=== PATIENT | female | born 1970 | race Caucasian/White ===

== ENCOUNTER → 2020-08-17 11:35 | Outpatient (BNVA) | payer MEDICARE, SELFPAY | PROVIDERS: Family Provider Family Medicine; PCP Family Medicine; Visit Provider Nurse Practitioner Family | DX: S63.91XA Sprain of unspecified part of right wrist and hand, initial encounter (principal); X58.XXXA Exposure to other specified factors, initial encounter | CPT/HCPCS: 73130 ==

== ENCOUNTER 2020-09-07 09:52 | Outpatient (CLI) | payer MEDICARE, SELFPAY ==
--- NOTE | 2020-09-07 10:23 | XR_ITS ---
WS: [id number] XR cervical spine fl/ex [id number] REASON FOR EXAM: M79.601 - Pain in right arm FINDINGS: The neutral, flexion, and extension views of the cervical spine in the lateral projection demonstrate significant narrowing of the intervertebral disc space at C5-C6. There is slight anterolisthesis of C6 in relation to C5. There is no significant change in the vertebral body alignment with flexion or extension. XR/XR cervical spine fl/ex [id number] IMPRESSION: Degenerative spondylosis at C5-C6 as above. No significant movement with flexio n and extension.
== END 2020-09-07 09:53 | disposition home or self-care (01) ==
LOC: RAD 10:04
PROVIDERS: PCP Family Medicine; Visit Provider Nurse Practitioner Family
DX: M79.601 Pain in right arm (principal); R20.0 Anesthesia of skin; M47.812 Spondylosis without myelopathy or radiculopathy, cervical region
CPT/HCPCS: 72040

== ENCOUNTER → 2020-09-20 13:58 | Outpatient (BNVA) | payer MEDICARE, SELFPAY | PROVIDERS: PCP Family Medicine; Visit Provider Family Medicine | DX: G56.01 Carpal tunnel syndrome, right upper limb (principal); R20.0 Anesthesia of skin; M79.601 Pain in right arm; M19.039 Primary osteoarthritis, unspecified wrist; S63.501A Unspecified sprain of right wrist, initial encounter; S69.90XA Unspecified injury of unspecified wrist, hand and finger(s), initial encounter; M65.4 Radial styloid tenosynovitis [de Quervain] | CPT/HCPCS: 73110; 73130 ==

== ENCOUNTER 2020-09-21 16:12 | Outpatient (CLI) | payer MEDICARE, SELFPAY | END 2020-09-21 16:13 | disposition home or self-care (01) | LOC: SPT 16:12 | PROVIDERS: PCP Family Medicine; Visit Provider Orthopaedic Surgery | DX: Z46.89 Encounter for fitting and adjustment of other specified devices (principal); M25.531 Pain in right wrist | CPT/HCPCS: 97760; L3809 ==

== ENCOUNTER → 2020-11-02 10:37 | Outpatient (BNVA) | payer MEDICARE, SELFPAY | PROVIDERS: PCP Family Medicine; Visit Provider Nurse Practitioner Family | DX: S69.91XA Unspecified injury of right wrist, hand and finger(s), initial encounter; M25.512 Pain in left shoulder; X58.XXXA Exposure to other specified factors, initial encounter | CPT/HCPCS: 73030; 73130 ==

== ENCOUNTER → 2020-11-07 12:42 | Outpatient (BNVA) | payer BC, SELFPAY | PROVIDERS: PCP Family Medicine; Visit Provider Specialist | DX: R20.0 Anesthesia of skin (principal); R20.2 Paresthesia of skin; G56.11 Other lesions of median nerve, right upper limb | CPT/HCPCS: 95908 ==

== ENCOUNTER → 2020-11-14 11:47 | Outpatient (BNVA) | payer MEDICARE, SELFPAY | PROVIDERS: PCP Family Medicine; Visit Provider Specialist | DX: M19.031 Primary osteoarthritis, right wrist (principal); G56.01 Carpal tunnel syndrome, right upper limb; G56.11 Other lesions of median nerve, right upper limb; S63.501A Unspecified sprain of right wrist, initial encounter; Y93.9 Activity, unspecified | CPT/HCPCS: 99203; 99204 ==

== ENCOUNTER 2020-12-14 14:15 | Outpatient (CLI) | payer MEDICARE, SELFPAY ==
--- NOTE | 2020-12-14 14:33 | MR_ITS ---
WS: [id number] INDICATION: Wrist pain fall trauma TECHNIQUE: Coronal T1, STIR, and PD fat sat. Coronal 3-D FSPGR. Axial PD fat-sat. Sagittal T1. FINDINGS: Normal anatomic alignment. No acute fractures. Moderate degenerative arthritis radiocarpal joint. Degenerative cystic changes involving the proximal and distal carpal row worse involving the c apitate. Normal bone marrow signal in the distal radius and ulna. . Tiny tear along the ulna styloid attachment TFCC with small amount of T2 signal abnormality. Normal extensor carpi ulnaris. Normal radial and ulnar collateral ligaments. Normal proximal metacarpals. Normal CMC joints. Normal scapholunate interval. Scaphoid and lunate are normal in appearance with normal bone marrow signal. Carpal tunnel is normal in appearance. Small amount of edema with a tiny amount of fluid or tiny gang lion cyst along the distal radial ulnar joint. This measures 4 mm. Small amount of fluid in the DRUJ. Fluid along the extensor tendon sheath consistent with tenosynovitis involving the extensor digitoru m tendon complex and extensor retinaculum. Tenosynovitis along the extensor carpi radialis brevis and extensor carpi radialis longus. Normal extensor carpi ulnaris. MR/MR wrist RT wo con* [id number] IMPRESSION: 1. Normal anatomic alignment. No acute fractures. 2. Normal bone marrow signal in the distal radius and ulna. 3. Scaphoid is normal in appearance. No scaphoid fractures or avascular necros is. Normal scapholunate interval. 4. Tiny tear along the ulna styloid attachment TFCC 5. Normal carpal tunnel and flexor retinaculum. 6. Small amount of fluid along the extensor compartment tendons consistent wit h tenosynovitis as described above. 7. Moderate degenerative arthritis involving the proximal and distal carpal ro w with some subchondral cystic change.
== END 2020-12-14 14:16 | disposition home or self-care (01) ==
LOC: RADWPI 14:22
PROVIDERS: PCP Nurse Practitioner Family; Visit Provider Specialist
DX: M19.031 Primary osteoarthritis, right wrist (principal)
CPT/HCPCS: 73221

== ENCOUNTER → 2021-11-06 14:02 | Outpatient (BNVA) | payer MEDICARE, SELFPAY | PROVIDERS: PCP Nurse Practitioner Family; Visit Provider Nurse Practitioner Family | DX: J44.9 Chronic obstructive pulmonary disease, unspecified (principal); J06.9 Acute upper respiratory infection, unspecified; R11.2 Nausea with vomiting, unspecified; R68.89 Other general symptoms and signs | CPT/HCPCS: 87400; 87635 ==

== ENCOUNTER → 2022-08-16 15:01 | Outpatient (BNVA) | payer MEDICARE, SELFPAY | PROVIDERS: Visit Provider Nurse Practitioner | DX: M25.572 Pain in left ankle and joints of left foot (principal) | CPT/HCPCS: 73610 ==

== ENCOUNTER 2022-08-28 10:21 | Emergency (ER) | payer MEDICARE, SELFPAY ==
[2022-08-28 10:23] VITALS: BP 171/105; PULSE 92; RESP 16; TEMP 36.2; O2SAT 99
--- NOTE | 2022-08-28 11:12 | ED_ITS ---
HPI - Extremity Problem General: Chief complaint: Extremity Injury, Lower Stated complaint: fall,left side pain Time Seen by Provider: 08/28/22 11:05 History of Present Illness: Ms. Rodriguez is a 52-year-old lady presenting to the emergency department due to fall with leg pain. She reports low back pain and was being evaluated at [facility] approximately 5 days ago when she got home was walking when her left leg suddenly gave out. She fell on the left side of her body hurting her hip and knee which have since that time. Moderate to severe in intensity despite treatments. Worse with palpation and movement. Denies distal numbness or tingling. Denies prodrome to fall or head strike/loss of consciousness. No other specific changes in health, exacerbating, or alleviating factors identified. Onset (ago): day(s) Pain Consistency: constant Location: left and lower extremity Radiation: distal Relieving factors: nothing Exacerbating factors: range of motion, weight bearing, walking and palpation Associated symptoms: Reports no associated symptoms Review of Systems General: Reports: 10 or more systems reviewed and unremarkable except in HPI and below PFSH ED PFSH: Medical History Anxious depression COPD (chronic obstructive pulmonary disease) Flu-like symptoms Lower respiratory infection Nausea & vomiting Osteoarthritis of wrist Pain and numbness of right upper extremity Social History Smoking and tobacco status: current every day smoker Physical Exam Const: COMMON NORMALS: alert GENERAL APPEARANCE: cooperative and well developed HENMT: COMMON NORMALS: normocephalic and atraumatic HEAD & SCALP: normocephalic and atraumatic Eye: COMMON NORMALS: conjunctivae normal CONJUNCTIVA: Yes conjunctivae normal SCLERA: sclerae normal Neck/C-Spine: COMMON NORMALS: supple GENERAL: Yes trachea midline Resp: COMMON NORMALS: clear to auscultation bilaterally EFFORT & INSPECTION: Yes able to speak in complete sentences AUSCULTATION: clear to auscultation bilaterally Cardio: COMMON NORMALS: regular rate and regular rhythm RATE: regular rate RHYTHM: regular rhythm GI: COMMON NORMALS: Soft to palpation PALPATION: Yes Soft to palpation and No Tenderness to palpation present (GI) PERCUSSION: normal to percussion Extremity: NARRATIVE EXTREMITY EXAM: Tender to palpation essentially along the entire lateral hip and thigh, generalized tenderness on both aspects of the knee joint, range of motion limited due to pain. GENERAL: Yes normal exam except as noted and No edema Neuro: COMMON NORMALS: moves all extremities SENSORIUM/ORIENTATION: Yes alert and No Orientation impaired Psych: COMMON NORMALS: mental status grossly normal and Normal thought process present THOUGHT PROCESS: Normal thought process present Course Vital Signs: Vital signs: Vital Signs Temperature 97.2 F L 08/28/22 10:23 Pulse Rate 92 08/28/22 10:23 Respiratory Rate 16 08/28/22 10:23 Blood Pressure 171/105 08/28/22 10:23 Pulse Oximetry 99 08/28/22 10:23 Oxygen Delivery Me thod 08/28/22 10:23 MDM - Extremity (Nontraumatic) Medical Decision Making 52-year-old lady presenting with extremity concern previously evaluated at outside hospital. Exam as above. Given reported clinical history no indication for laboratory studies at this time. X-rays negative for acute fracture. No indication for advanced imaging given physical exam and provided history. Improved during ED treatment with Valium, steroids, acetaminophen, cyclobenzaprine, Toradol Most likely cause patient symptoms is radicular pain. The results of ED evaluation were discussed with the patient including prescriptions and/or symptomatic cares (if applicable) including appropriate and responsible use, followup plan, and return precautions. The patient verbalized understanding and felt safe for discharge. Medical Records I reviewed the patient's medical records. Lab Data I reviewed the patient's lab results. Radiology Impressions Femur X-Ray 08/28/22 11:26 IMPRESSION: Negative left femur. Hip/Pelvis X-Ray 08/28/22 11:26 IMPRESSION: Negative left hip. Tonnis classification: 0 Knee X-Ray 08/28/22 11:26 Impression: Normal left knee Kellgren-Juan Classification: 0 Discharge Plan Discharge Patient Disposition: Home Clinical Impression: Fall, Left leg pain, Radicular pain of left lower extremity Condition: Stable Prescriptions: New Valium 2 mg tablet 2 mg PO TID PRN (Reason: muscle pain) Qty: 10 0RF No Action ibuprofen 800 mg tablet 800 mg PO Q8H PRN (Reason: pain) 10 Days Qty: 30 0RF albuterol sulfate 90 mcg/actuation HFA aerosol inhaler 1 inh INHALATION QID 30 Days Qty: 8.5 5RF albuterol sulfate 2.5 mg /3 mL (0.083 %) solution for nebulization 2.5 mg inhalation Q6H 30 Days Qty: 360 0RF Discharge Orders: Discharge ED (Routine); Ordered 08/28/22 Ordered By: Alber Mario Discharge Diet: Usual diet Discharge Activity: Increase activity as tolerated Patient Instructions: Diazepam (By mouth), Lumbar Radiculopathy (ED), Lower Back Exercises (ED), Pain Management Activity Restrictions/Additional Instructions: Thank you for visiting the emergency department. You were seen and evaluated for leg pain after a fall. The exact cause of your symptoms is unclear though may be related to soft tissue bruising and irritation of nerve roots. Please continue to use [id number] medications for symptoms, do not exceed the daily recommended dosage and please keep in mind that many namebrand medications contain the same active ingredients. I will prescribe diazepam as a muscle relaxer. Please use this cautiously as benzodiazepines can cause side effects. Please follow-up with your primary care provider. Return to the emergency department for uncontrolled symptoms or anything else that you are concerned about and feel needs emergency department evaluation. Coding Level of Care Code ED Manual Machinist for Mandy Fwjoan Exam Comprehensive
--- NOTE | 2022-08-28 11:26 | XR_ITS ---
WS: [id number] Exam: XR knee LT 3V* [id number] Date/Time of Exam: 08/28/2022 11:26 AM Reason For Exam: fall, knee pain No fracture or dislocation noted. Articular relationships are intact. No joint effusion. XR/XR knee LT 3V* [id number] Impression: Normal left knee Kellgren-Juan Classification: 0
--- NOTE | 2022-08-28 11:26 | XR_ITS ---
WS: [id number] Exam: XR hip LT 2-3V wo/w pel* [id number] Date/Time of Exam: 08/28/2022 11:26 AM Reason For Exam: fall, hip pain Findings: No fractures or bone anomalies are noted. No unusual soft tissue masses or calcifications are seen. The bony elements of the hip are in adequate alignment. XR/XR hip LT 2-3V wo/w pel* [id number] IMPRESSION: Negative left hip. Tonnis classification: 0
--- NOTE | 2022-08-28 11:26 | XR_ITS ---
WS: [id number] Exam: XR femur LT min 2V* [id number] Date/Time of Exam: 08/28/2022 11:26 AM Reason For Exam: fall No fractures, soft tissue swelling, or calcifications are noted. The femur is in adequate position. No periosteal reaction is noted. XR/XR femur LT min 2V* [id number] IMPRESSION: Negative left femur.
[2022-08-28] MEDS: cyclobenzaprine 10 mg Tablet PO (11:39)
[2022-08-28] MEDS: acetaminophen 500 mg Tablet 1000 MG PO (11:39)
[2022-08-28] MEDS: ketorolac 30 mg/mL INJ IM (11:39)
[2022-08-28] MEDS: diazePAM 2 mg Tablet PO (13:04)
[2022-08-28] MEDS: predniSONE 20 mg Tablet 60 MG PO (13:04)
== END 2022-08-28 13:05 | disposition home or self-care (01) ==
PROVIDERS: Emergency Provider Emergency Medicine
DX: M79.605 Pain in left leg (principal); W19.XXXA Unspecified fall, initial encounter
CPT/HCPCS: 73502; 73552; 73562; 96372; 99284; E0114; J1885; J7512